=== PATIENT | female | born 1995 | race Caucasian/White ===

== ENCOUNTER 2019-02-04 16:14 | Emergency (ER) | payer OTHER ==
[2019-02-04 16:20] VITALS: BP 120/75; PULSE 125; TEMP 98.2; BMI 26.6
--- NOTE | 2019-02-04 16:25 | PDOC ---
Rapid Medical Evaluation Chief Complaint: Vaginal Bleeding Time Seen by Provider: 02/04/19 16:21 Medical Evaluation: Allergies Allergy/AdvReac Type Severity Reaction Status Date / Time No Known Allergies Allergy Verified 02/04/19 16:20 Vital Signs Temp Pulse Resp BP Pulse Ox 98.2 F 125 H 19 120/75 99 02/04/19 16:17 02/04/19 16:17 02/04/19 16:17 02/04/19 16:17 02/04/19 16:17 02/04/19 16:24 I have performed a brief in-person evaluation of this patient. The patient presents with a chief complaint of: vag bleed since this afternoon, 6 weeks preg, no pain Pertinent physical exam findings: tachycardic, no abd tenderness, I have ordered the following: labs, urine, u/s The patient will proceed to the ED for further evaluation.
[2019-02-04 16:57] LABS: BASO % 0.5 % (0-2.0); EOS % 0.5 % (0-4.5); HEMATOCRIT 41.2 % (32.4-45.2); HEMOGLOBIN 13.8 GM/dL (10.7-15.3); LYMPH % 23.2 % (8-40); MCH 31.3 pg (25.7-33.7); MCHC 33.6 g/dl (32.0-36.0); MEAN CELL VOLUME 93.3 fl (80-96); MEAN PLT VOLUME 10.4 fl (7.5-11.1); MONO % 6.1 % (3.8-10.2); NEUT % 69.7 % (42.8-82.8); PLATELET COUNT 203 K/MM3 (134-434); RBC 4.42 M/mm3 (3.60-5.2); RDW 13.6 % (11.6-15.6); WHITE BLOOD COUNT 7.7 K/mm3 (4.0-10.0)
[2019-02-04 17:00] LABS: EPI CELLS 8.1 /HPF (0-5/HPF); HYALINE CASTS 5 /lpf (0-8); URINE APPEARANCE CLOUDY; URINE BACTERIA 324.9 /hpf (NEGATIVE); URINE BILIRUBIN NEGATIVE (NEGATIVE); URINE COLOR ORANGE; URINE GLUCOSE (UA) NEGATIVE (NEGATIVE); URINE KETONE NEGATIVE (NEGATIVE); URINE LEUK ESTERASE 3+ (NEGATIVE); URINE NITRITE NEGATIVE (NEGATIVE); URINE PROTEIN TRACE (NEGATIVE); URINE RBC 126 /hpf (0-4); URINE WBC 74 /hpf (0-5)
[2019-02-04 17:33] LABS: ALBUMIN 3.7 g/dl (3.4-5.0); BILIRUBIN,TOTAL 0.2 mg/dL (0.2-1); BLOOD UREA NITROGEN 7.2 mg/dL (7-18); CALCIUM 8.7 mg/dL (8.5-10.1); CREATININE 0.6 mg/dL (0.55-1.3); POTASSIUM 3.8 mmol/L (3.5-5.1); TOT PROT 6.7 g/dl (6.4-8.2)
--- NOTE | 2019-02-04 17:34 | PDOC ---
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 Patient reports her LMP was 10/1 and believes she is approximately 6 weeks . She denies any abdominal pain or cramping. Patient reports she has gone through one pad since the bleeding began. She denies any headache, dizziness, lightheadedness, or palpitations. Patient was recently seen by OB [facility]N [place] (with Dr. Rangel) and was told that it was too early to see anything on the ultrasound ; she has a follow up appointment in a few weeks at which time they would do an ultrasound. No recent travel or sick contacts. PAST MEDICAL HISTORY: Denies past medical history FAMILY HISTORY: Denies SOCIAL HISTORY: Denies tobacco, alcohol, illicit drug use. SURGICAL HISTORY: Denies ALLERGIES: No known drug allergies REVIEW OF SYSTEMS General/Constitutional: Denies fever or chills. Denies weakness, weight change. HEENT: Denies change in vision. Denies ear pain or discharge. Denies sore throat. Cardiovascular: Denies chest pain or shortness of breath. Respiratory: Denies cough, wheezing, or hemoptysis. Gastrointestinal: Denies nausea, vomiting, diarrhea or constipation. Denies rectal bleeding. Genitourinary: Vaginal bleeding x 1-2 hours. Musculoskeletal: Denies joint or muscle swelling or pain. Denies neck or back pain. Skin and breasts: Denies rash or easy bruising. Neurologic: Denies headache, vertigo, loss of consciousness, or loss of sensation. Psychiatric: Denies depression or anxiety. PHYSICAL EXAM General Appearance: Well-appearing, appropriately dressed. No apparent distress , no intoxication. HEENT: EOMI, PERRLA, normal ENT inspection, normal voice, TMs normal, pharynx normal. No conjunctival pallor. No photophobia, scleral icterus. Neck: Supple. Trachea midline. No tenderness, rigidity, carotid bruit, stridor , lymphadenopathy, or thyromegaly. Respiratory/Chest: Lungs CTAB. No shortness of breath, chest tenderness, respiratory distress, accessory muscle use. No crackles, rales, rhonchi, stridor , wheezing, dullness Cardiovascular: RRR. S1, S2. No JVD, murmur, bradycardia, tachycardia. Vascular Pulses: Dorsalis-Pedis (R): 2+, Dorsalis-Pedis (L): 2+ Gastrointestinal/Abdominal: Normal bowel sounds. Abdomen soft, non-distended. No tenderness or rebound tenderness. No organomegaly, pulsatile mass, guarding , hernia, hepatomegaly, splenomegaly. Pelvic: External genitalia normal without lesions. Moderate amount of bleeding to vaginal vault, small clots appreciated. Cervix is long and closed. No cervical motion tenderness. Uterus is nontender and normal in size. Adnexa are nontender and without masses. Lymphatic: No adenopathy, tenderness. Musculoskeletal/Extremities: Normal inspection. FROM of all extremities, normal capillary refill. Pelvis Stable. No CVA tenderness. No tenderness to extremities, pedal edema, swelling, erythema or deformity. Integumentary: Appropriate color, dry, warm. No cyanosis, erythema, jaundice or rash Neurologic: wardrobe specialist II-XII intact. Fully oriented, alert. Appropriate mood/affect. Motor strength 5/5. No appreciable EOM palsy, facial droop or sensory deficit. Past History - Past Medical History Allergies/Adverse Reactions: Allergies Allergy/AdvReac Type Severity Reaction Status Date / Time No Known Allergies Allergy Verified 02/04/19 16:20 COPD: No - Psycho Social/Smoking Cessation Hx Smoking History: Never smoked Information on smoking cessation initiated: No Hx Alcohol Use: No Drug/Substance Use Hx: No *Physical Exam - Vital Signs Last Vital Signs Temp Pulse Resp BP Pulse Ox 98.2 F 125 H 19 120/75 99 02/04/19 16:17 02/04/19 16:17 02/04/19 16:17 02/04/19 16:17 02/04/19 16:17 ED Treatment Course - LABORATORY CBC & Chemistry Diagram: 02/04/19 16:36 02/04/19 16:36 - ADDITIONAL ORDERS Additional order review: Laboratory Results 02/04/19 16:36 Urine Color [place] Urine Appearance Cloudy Urine pH 8.0 Ur Specific [place] 1.009 L Urine Protein Trace Urine Glucose (UA) Negative Urine Ketones Negative Urine Blood 3+ H Urine Nitrite Negative Urine Bilirubin Negative Urine Urobilinogen 1.0 Ur Leukocyte Esterase 3+ H Urine WBC (Auto) 74 Urine RBC (Auto) 126 Urine Casts (Auto) 5 U Epithel Cells (Auto) 8.1 Urine Bacteria (Auto) 324.9 02/04/19 16:36 RBC 4.42 MCV 93.3 MCHC 33.6 RDW 13.6 MPV 10.4 Neutrophils % 69.7 Lymphocytes % 23.2 Monocytes % 6.1 Eosinophils % 0.5 Basophils % 0.5 Medical Decision Making - Medical Decision Making 02/04/19 17:59 23 yo F presents to ED with vaginal bleeding that began 1-2 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 -labs -TVUS On exam patient to have a moderate amount of vaginal bleeding, likely threatened miscarriage. beta hCG [id number], pt to return in 48 hours for repeat. Patient blood type A positive, Rhogam not indicated. Discharge - Discharge Information Problems reviewed: Yes Clinical Impression/Diagnosis: Threatened miscarriage in early Condition: Stable Disposition: HOME - Admission No - Follow up/Referral Referrals: Chong Underwood MD [Primary Care Provider] - Mi Rangel MD [Staff Physician] - - Patient Discharge Instructions Patient Printed Discharge Instructions: DI for Threatened Additional Instructions: As discussed, you MUST follow up in [address] Rangel's office or in the emergency room for repeat bloodwork for continued evaluation of your . If you develop severe vaginal bleeding (more than one soaked pad an hour), abdominal pain, lightheadedness, shortness of breath, dizziness, or palpitations, or any new or worsening symptoms, please return to the ER immediately. - Post Discharge Activity
== END 2019-02-04 19:24 | disposition home or self-care (01) ==
LOC: JER 16:14
DX: O26.891 Other specified pregnancy related conditions, first trimester (principal); O20.0 Threatened abortion; Z3A.01 Less than 8 weeks gestation of pregnancy
CPT/HCPCS: 36415; 76817-TC; 80053; 81003; 84702; 85025; 86850; 86900; 86901; 87086; 99283-25

== ENCOUNTER 2019-02-10 22:13 | Emergency (ER) | payer OTHER ==
[2019-02-10 22:19] VITALS: BP 122/70; PULSE 95; TEMP 97.8; BMI 25.8
--- NOTE | 2019-02-10 23:09 | PDOC ---
Attending Attestation - Resident Resident Name: DarylGigiJc - ED Attending Attestation I have performed the following: I have examined & evaluated the patient, The case was reviewed & discussed with the resident, I agree w/resident's findings & plan - HPI HPI: 02/10/19 23:08 see resident hpi - Physicial Exam PE: 02/10/19 23:08 agree with resident exam - Medical Decision Making 02/10/19 23:08 23-year-old female with recent history of missed AB now with increased vaginal bleeding Plan for ultrasound, repeat beta quant Pending results patient will likely be DC'd home to follow-up with OB as previously scheduled
--- NOTE | 2019-02-10 23:42 | PDOC ---
History of Present Illness - General Chief Complaint: Vaginal Bleeding Stated Complaint: MISCARRIAGE Time Seen by Provider: 02/10/19 23:08 - History of Present Illness Initial Comments: 02/10/19 23:40 23 yo F G1PO, LMP 12/23/18, at 7 wga with h/o recent vaginal bleeding, who p/w vaginal bleeding and lower abdominal pain. Patient reports worsening, progressive, crampy pelvic and lower abdominal pain, with radiation to back. Reports vaginal bleeding with clotting requiring 10 pads per day. + nausea without vomiting. Pain ongoing since prior ED encounter. Not relieved with Tylenol OTC. Recent ED Encounter for vaginal bleeding in 02/04/19 with TVUS 1.3 cm Intrauterine gestational sac and yolk sac. No embyonic pole, possible anembyronic gestation/blighted ovum. 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 Rangel 02/10/19 and scheduled for outpt. D&C . Patient at bedside. Patient denies WILLIAMSNO, vision change, palpitations, cough, wheezing, orthopena, PND , leg swelling/pain, F,C, CP, SOB, urinary complaints, hematuria, BPR, diarrhea , constipation, lightheadedness, weakness, sensory changes. PMHx: as noted above ROS: as noted SHx: Denies Etoh, IVDA, tobacco use Allergies: NKDA Past History - Past Medical History Allergies/Adverse Reactions: Allergies Allergy/AdvReac Type Severity Reaction Status Date / Time No Known Allergies Allergy Verified 02/10/19 22:17 COPD: No - Psycho Social/Smoking Cessation Hx Smoking History: Never smoked Hx Alcohol Use: No Drug/Substance Use Hx: No Review of Systems - Review of Systems Comments:: 02/10/19 23:51 GENERAL/CONSTITUTIONAL: No fever or chills. No weakness. HEAD, EYES, EARS, NOSE AND THROAT: No change in vision. No ear pain or discharge. No sore throat. CARDIOVASCULAR: No chest pain or shortness of breath RESPIRATORY: No cough, wheezing, or hemoptysis. GASTROINTESTINAL: + Lower abdominal pain, nausea. No vomiting, diarrhea or constipation. GENITOURINARY: + Vaginal bleeding, and pelvic pain. No dysuria, frequency, or change in urination. MUSCULOSKELETAL: No joint or muscle swelling or pain. No neck or back pain. SKIN: No rash NEUROLOGIC: No headache, vertigo, loss of consciousness, or change in strength/ sensation. ENDOCRINE: No increased thirst. No abnormal weight change HEMATOLOGIC/LYMPHATIC: No anemia, easy bleeding, or history of blood clots. ALLERGIC/IMMUNOLOGIC: No hives or skin allergy. *Physical Exam - Vital Signs Last Vital Signs Temp Pulse Resp BP Pulse Ox 97.8 F 95 H 18 122/70 100 02/10/19 22:17 02/10/19 22:17 02/10/19 22:17 02/10/19 22:17 02/10/19 22:17 - Physical Exam Comments: 02/10/19 23:52 GENERAL: Awake, alert, and fully oriented, in no acute distress HEAD: No signs of trauma, normocephalic, atraumatic EYES: PERRLA, EOMI, sclera anicteric, conjunctiva clear ENT: Hearing grossly normal, nares patent, oropharynx clear without exudates. Moist mucosa NECK: Normal ROM, supple, no lymphadenopathy, JVD, or masses LUNGS: No distress, speaks full sentences, clear to auscultation bilaterally HEART: Regular rate and rhythm, normal S1 and S2, no murmurs, rubs or gallops, peripheral pulses normal and equal bilaterally. ABDOMEN: + Diffuse lower abdominal ttp. Soft, NDS, normoactive bowel sounds. No guarding, no rebound. No masses. Neg CVA ttp. GENITOURINARY: Nml appearing external genitalia, with absent lesions. Vaginal vault with blood pooling and small clots. Absent discharge. Cervical 2 mm. Neg CMT on BM. Neg adenexal ttp, or mass palpated.Chaperoned by cam at bedside. EXTREMITIES : Normal inspection, Normal range of motion, no edema. No clubbing or cyanosis NEUROLOGICAL: Cranial nerves II through XII grossly intact. Normal speech, normal gait, no focal sensorimotor deficits SKIN: Warm, Dry, normal turgor, no rashes or lesions noted ED Treatment Course - LABORATORY CBC & Chemistry Diagram: 02/11/19 00:05 02/11/19 00:05 - ADDITIONAL ORDERS Additional order review: 02/11/19 01:16 02/11/19 01:15 Patient Information: : 1995 Order Type: Preliminary Name: AL ZAYATNA HIBA Sex: F Study Description: US PELVIC Modality: US Location: [facility] Referring Physician: TABITHA MILLER Comments: Michelet Felix MD wrote on Feb 10, 2019 at 11:58 PM: Referring Physician: TABITHA MILLER Patient Name: HEENA VIEYRA THIS IS A PRELIMINARY REPORT FROM [facility] DATE OF SERVICE: 2019-02-10 23:04:24 IMAGES: 55 EXAM: TRANSVAGINAL US PREG HISTORY: Vaginal bleeding. COMPARISON: None. Preliminary findings/impression: 1. Findings consistent with bicornuate uterus, without apparent intrauterine gestational sac. 2. Ovoid focus within the uterine parenchyma, consistent with myoma. 3. Trace free fluid within the pelvic cul-de-sac, likely physiologic. CONFIDENTIALITY NOTICE: This information is intended only for the use of the recipient(s) named above. If you are not the intended recipient, or a person responsible for delivering it to the intended recipient, you are hereby notified that any disclosure, copying, distribution or use of any of the information contained in or attached to this transmission is STRICTLY PROHIBITED. If you have received this transmission in error, please immediately notify [facility] and destroy the original transmission and its attachments without saving them in any manner [address] [facility] [address] [place] [address] Phone: [phone]) Fax: Email: [email or web address] Patient Information: : 1995 Order Type: Preliminary Name: JARRELL LEYVA Sex: F Study Description: US PELVIC Modality: US Location: [facility] Referring Physician: TABITHA MILLER THIS DOCUMENT HAS BEEN ELECTRONICALLY SIGNED Michelet Felix MD 02/10/2019 23:57 DUNIA Field Please call [facility] [phone]) with questions. Michelet Felix MD Clinicians - Please contact [facility] with further questions at [phone] Patients - Please contact your Ordering Provider with questions 02/11/19 01:15 Medical Decision Making - Medical Decision Making 02/11/19 00:21 23 yo F G1PO, LMP 12/23/18, at 8 wga with h/o recent vaginal bleeding, who p/w vaginal bleeding and lower abdominal pain x 7 days. + Diffusely, lower abdominal ttp. Vitals wnl, AF, A&OX3. Exam notable for diffuse lower abdominal ttp and pelvic/vaginal vault with blood pooling and small clots. Cervical 2 mm.Will assess for viable IUP vs. threatened . Will consider chorionic hemorrhage, septic , colitis, cystitis. Will provide pain control, anti- emetic control and reassess. Ed course: Tylenol, NS, Zofran 02/11/19 01:11 Laboratory Tests 02/11/19 02/11/19 00:05 00:05 WBC 11.1 H Hgb 14.4 Hct 43.2 Plt Count 241 Sodium 139 Potassium 4.0 BUN 7.2 Creatinine 0.5 L Beta HCG, Quant 245.9 02/11/19 01:11 [id number] HCG (02/04/19) 02/11/19 01:15 1. Findings consistent with bicornuate uterus, without apparent intrauterine gestational sac. 2. Ovoid focus within the uterine parenchyma, consistent with myoma. 3. Trace free fluid within the pelvic cul-de-sac, likely physiologic. 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 Rangel patient to f/u in surgery outpt. 02/11/19 02:49 Pt. pain and bleeding improved. Advised to f/u with Dr. Rangel. Stable for d/ c with return precautions. Discharge - Discharge Information Problems reviewed: Yes Clinical Impression/Diagnosis: Threatened miscarriage in early Condition: Stable Disposition: HOME - Admission No - Follow up/Referral Referrals: Chong Underwood MD [Primary Care Provider] - - Patient Discharge Instructions Patient Printed Discharge Instructions: DI for Threatened Additional Instructions: Please return to the emergency department with any new or worsening symptoms or concerns. 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 - Post Discharge Activity
[2019-02-11 00:22] LABS: HEMATOCRIT 43.2 % (32.4-45.2); HEMOGLOBIN 14.4 GM/dL (10.7-15.3); MCH 31.1 pg (25.7-33.7); MCHC 33.4 g/dl (32.0-36.0); MEAN CELL VOLUME 93.4 fl (80-96); MEAN PLT VOLUME 10.4 fl (7.5-11.1); PLATELET COUNT 241 K/MM3 (134-434); RBC 4.62 M/mm3 (3.60-5.2); RDW 13.6 % (11.6-15.6); WHITE BLOOD COUNT 11.1 K/mm3 (4.0-10.0)
[2019-02-11 00:50] LABS: BILIRUBIN,TOTAL 0.2 mg/dL (0.2-1); BLOOD UREA NITROGEN 7.2 mg/dL (7-18); CALCIUM 8.9 mg/dL (8.5-10.1); CREATININE 0.5 mg/dL (0.55-1.3); TOT PROT 7.1 g/dl (6.4-8.2)
[2019-02-11] MEDS ORDERED: SODIUM CHLORIDE 1,000 ML IV STA (01:13)
[2019-02-11] MEDS ORDERED: ACETAMINOPHEN 1000 MG/100 ML VIAL (NON FORMULARY) IVPB ONE (01:13)
[2019-02-11] MEDS ORDERED: METOCLOPRAMIDE HCL INJECTION 10 MG/2 ML VIAL IVPUSH ONE (01:13)
[2019-02-11] MEDS ORDERED: METOCLOPRAMIDE HCL INJECTION 10 MG/2 ML VIAL ONE (01:15)
[2019-02-11] MEDS ORDERED: ACETAMINOPHEN INJECTION 100 ML IVPB ONE (01:15)
== END 2019-02-11 02:53 | disposition home or self-care (01) ==
LOC: JER 22:13
PROC: 3E033GC Introduction of Other Therapeutic Substance into Peripheral Vein, Percutaneous Approach (ICD-10-PCS; principal; 2019-02-10)
PROC: 3E033NZ Introduction of Analgesics, Hypnotics, Sedatives into Peripheral Vein, Percutaneous Approach (ICD-10-PCS; 2019-02-10)
DX: O26.891 Other specified pregnancy related conditions, first trimester (principal); O20.0 Threatened abortion; Z3A.01 Less than 8 weeks gestation of pregnancy
CPT/HCPCS: 36415; 76817-TC; 80053; 84702; 85027; 86850; 86900; 86901; 96374; 96375; 99284-25; J0131; J7030

== ENCOUNTER 2020-06-15 11:38 | Emergency (ER) | payer OTHER ==
[2020-06-15 12:19] VITALS: BP 127/77; PULSE 97; TEMP 98.5; BMI 27.6
== END 2020-06-15 12:37 | disposition home or self-care (01) ==
LOC: JERFT 11:38 → JER 11:38 → JERFT 12:37
DX: Z48.02 Encounter for removal of sutures (principal)
CPT/HCPCS: 99281-25

== ENCOUNTER 2021-12-03 14:56 | Emergency (ER) | payer OTHER ==
[2021-12-03 15:13] VITALS: BP 121/78; PULSE 109; RESP 18; TEMP 98.2; BMI 28.4
[2021-12-03 16:27] LABS: EPI CELLS 18 /uL (0-25.1); HYALINE CASTS 0 /uL (0-3.1); PH,URINE 5.5 (5.0-8.0); URINE APPEARANCE CLOUDY; URINE BACTERIA 308 /uL (0-1359); URINE BILIRUBIN NEGATIVE (NEGATIVE); URINE COLOR RED; URINE GLUCOSE (UA) NEGATIVE (NEGATIVE); URINE KETONE TRACE (NEGATIVE); URINE LEUK ESTERASE 2+ (NEGATIVE); URINE NITRITE NEGATIVE (NEGATIVE); URINE PROTEIN TRACE (NEGATIVE); URINE RBC 5596 /uL (0-23.9); URINE WBC 33 /uL (0-25.8)
[2021-12-03 16:57] LABS: BASO % 0.2 % (0-2.0); EOS % 0.1 % (0-4.5); HEMATOCRIT 46.6 % (32.4-45.2); HEMOGLOBIN 15.2 GM/dL (10.7-15.3); LYMPH % 8.7 % (8-40); MCH 28.9 pg (25.7-33.7); MCHC 32.6 g/dl (32.0-36.0); MEAN CELL VOLUME 88.5 fl (80-96); MEAN PLT VOLUME 9.9 fl (7.5-11.1); MONO % 1.2 % (3.8-10.2); NEUT % 89.8 % (42.8-82.8); PLATELET COUNT 249 10^3/uL (134-434); RBC 5.27 M/mm3 (3.60-5.2); RDW 14.4 % (11.6-15.6); WHITE BLOOD COUNT 14.7 K/mm3 (4.0-10.0)
[2021-12-03 17:44] LABS: ALBUMIN 3.9 g/dl (3.4-5.0); BLOOD UREA NITROGEN 7.5 mg/dL (7-18); CALCIUM 9.1 mg/dL (8.5-10.1)
[2021-12-03 17:47] LABS: CREATININE 0.5 mg/dL (0.55-1.3)
[2021-12-03 17:49] LABS: BILIRUBIN,TOTAL 0.4 mg/dL (0.2-1); TOT PROT 7.3 g/dl (6.4-8.2)
== END 2021-12-03 21:26 | disposition home or self-care (01) ==
LOC: JER 14:56
DX: O20.0 Threatened abortion (principal)
CPT/HCPCS: 36415; 76817-TC; 80053; 81003; 84702; 85025; 86850; 86900; 86901; 87086; 99284-25

== ENCOUNTER 2021-12-15 12:15 | Emergency (ER) | payer OTHER ==
[2021-12-15 12:25] VITALS: BP 117/71; PULSE 115; RESP 19; TEMP 98.2; BMI 29.8
[2021-12-15 14:26] LABS: BASO % 0.5 % (0-2.0); EOS % 1.4 % (0-4.5); HEMOGLOBIN 13.6 GM/dL (10.7-15.3); MCH 29.6 pg (25.7-33.7); MCHC 33.3 g/dl (32.0-36.0); MEAN PLT VOLUME 9.3 fl (7.5-11.1); MONO % 7.9 % (3.8-10.2); NEUT % 63.2 % (42.8-82.8); PLATELET COUNT 199 10^3/uL (134-434); RDW 14.2 % (11.6-15.6); WHITE BLOOD COUNT 7.1 K/mm3 (4.0-10.0)
[2021-12-15 14:39] LABS: EPI CELLS 19 /uL (0-25.1); HYALINE CASTS 0 /uL (0-3.1); URINE APPEARANCE CLEAR; URINE BACTERIA 185 /uL (0-1359); URINE BILIRUBIN NEGATIVE (NEGATIVE); URINE COLOR ORANGE; URINE GLUCOSE (UA) NEGATIVE (NEGATIVE); URINE KETONE NEGATIVE (NEGATIVE); URINE LEUK ESTERASE TRACE (NEGATIVE); URINE NITRITE NEGATIVE (NEGATIVE); URINE PROTEIN TRACE (NEGATIVE); URINE RBC 2432 /uL (0-23.9); URINE UROBILINOGEN 0.2 mg/dL (0.2-1.0); URINE WBC 9 /uL (0-25.8)
[2021-12-15 14:49] LABS: ALBUMIN 3.5 g/dl (3.4-5.0); BLOOD UREA NITROGEN 7.1 mg/dL (7-18); CALCIUM 8.6 mg/dL (8.5-10.1)
[2021-12-15 14:52] LABS: CREATININE 0.5 mg/dL (0.55-1.3)
[2021-12-15 14:54] LABS: BILIRUBIN,TOTAL 0.2 mg/dL (0.2-1); TOT PROT 6.7 g/dl (6.4-8.2)
== END 2021-12-15 17:09 | disposition home or self-care (01) ==
LOC: JER 12:15
DX: O03.9 Complete or unspecified spontaneous abortion without complication (principal)
CPT/HCPCS: 36415; 76801-TC; 80053; 81003; 84702; 85025; 86850; 86900; 86901; 87077; 87086; 99284-25

== ENCOUNTER 2023-04-18 01:22 | Emergency (ER) | payer OTHER ==
[2023-04-18 01:31] VITALS: BMI 33.2
[2023-04-18] MEDS ORDERED: ACETAMINOPHEN 500 MG TABLET (FP) PO ONE (03:39)
[2023-04-18] MEDS ORDERED: ACETAMINOPHEN 325 MG TABLET (FP) ONE (03:40)
[2023-04-18] MEDS ORDERED: KETOROLAC TROMETHAMINE 15 MG/ML VIAL IM ONE (04:22)
[2023-04-18] MEDS ORDERED: KETOROLAC TROMETHAMINE 15 MG/ML VIAL ONE (04:44)
[2023-04-18 05:20] VITALS: BP 102/65; PULSE 88; RESP 18; TEMP 98.4
== END 2023-04-18 08:36 | disposition home or self-care (01) ==
LOC: JER 01:22
PROC: 3E0233Z Introduction of Anti-inflammatory into Muscle, Percutaneous Approach (ICD-10-PCS; principal; 2023-04-18)
DX: S30.0XXA Contusion of lower back and pelvis, initial encounter (principal); W10.8XXA Fall (on) (from) other stairs and steps, initial encounter; Y92.9 Unspecified place or not applicable
CPT/HCPCS: 72131-TC; 72192-TC; 84703; 99284-25